=== PATIENT | female | born 1990 | race Two or more races ===

== ENCOUNTER 2021-04-12 13:43 | Emergency (ER) | payer BC ==
[2021-04-12] MEDS ORDERED: Ketorolac 30 MG/ML SDV IM ONE (14:05)
[2021-04-12] MEDS ORDERED: Ondansetron 4 MG Tab.DIS PO ONE (14:05)
--- NOTE | 2021-04-12 14:11 | EDM.PDOC ---
ED HPI GENERAL MEDICAL PROBLEM - General Chief Complaint: Respiratory Problem Stated Complaint: COVID + Time Seen by Provider: 04/12/21 13:57 Source of Information: Reports: Patient, RN Notes Reviewed History Limitations: Reports: No Limitations - History of Present Illness INITIAL COMMENTS - FREE TEXT/NARRATIVE: Patient is a 30-year-old female who presents to the ER for her ongoing COVID-19 symptoms. States that she has been sick for about 3 days and was diagnosed yesterday. States that she has been much every symptom COVID, fevers, chills, cough, shortness of breath, nausea so much that she cannot really keep any sort of food or fluids down and she also has been having diarrhea as well. States that she is a fairly healthy person otherwise and has no other comorbidities. 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 ED EXAM, GENERAL - Physical Exam Exam: See Below Exam Limited By: No Limitations General Appearance: Alert, WD/WN, No Apparent Distress Respiratory/Chest: No Respiratory Distress, Lungs Clear, Normal Breath Sounds, No Accessory Muscle Use, Chest Non-Tender Cardiovascular: Normal Peripheral Pulses, Regular Rate, Rhythm, No Edema Extremities: Normal Inspection, Normal Capillary Refill Neurological: Alert, Oriented, Normal Cognition, No Motor/Sensory Deficits Psychiatric: Normal Affect, Normal Mood Skin Exam: Warm, Dry, Intact, Normal Color, No Rash Course - Vital Signs Last Recorded V/S: Last Vital Signs Temp 98.0 F 04/12/21 13:55 Pulse 87 04/12/21 13:55 Resp 15 04/12/21 13:55 BP 102/67 04/12/21 13:55 Pulse Ox 95 04/12/21 13:55 - Orders/Labs/Meds Orders: Active Orders 24 hr Category Date Time Status Chest 1V Frontal [CR] Stat Exams 04/12/21 14:05 Ordered Labs: Laboratory Tests 04/12/21 04/12/21 Range/Units 14:33 14:33 WBC 5.81 (3.98-10.04) K/mm3 RBC 4.46 (3.98-5.22) M/mm3 Hgb 13.0 (11.2-15.7) gm/dl Hct 41.1 (34.1-44.9) % MCV 92.2 (79.4-94.8) fl MCH 29.1 (25.6-32.2) pg MCHC 31.6 L (32.2-35.5) g/dl RDW Std Deviation 44.0 (36.4-46.3) fL Plt Count 245 (182-369) K/mm3 MPV 10.2 (9.4-12.3) fl Neut % (Auto) 40.2 (34.0-71.1) % Lymph % (Auto) 43.9 (19.3-51.7) % [place] % (Auto) 14.6 H (4.7-12.5) % Eos % (Auto) 0.9 (0.7-5.8) Baso % (Auto) 0.2 (0.1-1.2) % Neut # (Auto) 2.34 (1.56-6.13) K/mm3 Lymph # (Auto) 2.55 (1.18-3.74) K/mm3 [place] # (Auto) 0.85 H (0.24-0.36) K/mm3 Eos # (Auto) 0.05 (0.04-0.36) K/mm3 Baso # (Auto) 0.01 (0.01-0.08) K/mm3 Sodium 140 (136-145) mEq/L Potassium 3.8 (3.5-5.1) mEq/L Chloride 104 (98-107) mEq/L Carbon Dioxide 27 (21-32) mEq/L Anion Gap 12.8 (5-15) BUN 11 (7-18) mg/dL Creatinine 1.0 (0.55-1.02) mg/dL Est Cr Clr Drug Dosing 63.88 mL/min Estimated GFR (MDRD) > 60 (>60) mL/min BUN/Creatinine Ratio 11.0 L (14-18) Glucose 82 (70-99) mg/dL Calcium 8.5 (8.5-10.1) mg/dL Total Bilirubin 0.2 (0.2-1.0) mg/dL AST 21 (15-37) U/L ALT 39 (14-59) U/L Alkaline Phosphatase 80 (46-116) U/L C-Reactive Protein 3.7 H* (<1.0) mg/dL Total Protein 7.8 (6.4-8.2) g/dl Albumin 3.5 (3.4-5.0) g/dl Globulin 4.3 gm/dL Albumin/Globulin Ratio 0.8 L (1-2) Meds: Medications Discontinued Medications Generic Name Dose Route Start Last Admin Trade Name Freq PRN Reason Stop Dose Admin Ketorolac Tromethamine 30 mg 04/12/21 14:05 04/12/21 14:46 Ketorolac 30 Mg/Ml Sdv IM 04/12/21 14:06 30 mg ONETIME ONE Administration Ondansetron HCl 4 mg 04/12/21 14:05 04/12/21 14:46 Ondansetron 4 Mg Tab.Dis PO 04/12/21 14:06 4 mg ONETIME ONE Administration - Re-Assessments/Exams Free Text/Narrative Re-Assessment/Exam: 04/12/21 14:12 Patient is a 30-year-old female who presents to the ER for evaluation of her COVID-19 symptoms. Main concern is nausea with associated vomiting, we will go ahead and give her an oral dose of Zofran and some IM Toradol for symptomatic management will get a chest x-ray for baseline and we will go ahead and get some basic labs. 04/12/21 15:48 Patient was reassessed at bedside states that her nausea has improved. Labs have been reviewed and are essentially unremarkable, chest x-ray also shows no acute processes. I did explain to the patient that she will likely feel pretty under the weather for another week to 10 days, and that she should watch her oxygen saturations and return to the ER if these are below 90. Patient verbalized understanding. She will be sent home with a pulse oximeter from this facility. Departure - Departure Time of Disposition: 15:49 Disposition: Home, Self-Care 01 Condition: Good Clinical Impression: COVID-19 - Discharge Information *PRESCRIPTION DRUG MONITORING PROGRAM REVIEWED*: No *COPY OF PRESCRIPTION DRUG MONITORING REPORT IN PATIENT [place]: No Prescriptions: Ondansetron [Zofran ODT] 4 mg PO Q8H PRN #21 tab.dis PRN Reason: Nausea Instructions: 10 Things You Can Do to Manage Your COVID-19 Symptoms at Home - [facility] (10/18/2020) Referrals: PCP,None [Primary Care Provider] - Forms: ED Department Discharge Additional Instructions: You were seen in the ER today for ongoing and/or worsening respiratory symptoms. Your chest x-ray showed no signs of pneumonia at this time. Your oxygen levels were great at 98-100% on room air. You were given a prescription for Zofran for your nausea you may take 1 tablet d issolvable under your tongue every 8 hours as needed. This medication was electronically sent to the [facility] located near [facility]. Please try to increase your oral fluid intake, and eat multiple small meals throughout the day, to keep yourself healthy. You need to keep yourself nourished in order to fight off this disease. You can try a liquid diet like ga torade/powerade as well to get your electrolytes. You may take 500 mg Tylenol every hours 6 hours for pain/fever relief. Do not exceed 4000 mg Tylenol in a 24-hour time span. However, running a fever is your body's natural response to illness, and it allows the body to develop antibodies to disease, we are recommending trying to limit the use of Tylenol as much as possible to allow your body's natural immune response. Recommend you obtain a pulse oximeter and monitor your oxygen levels at home, you should place the monitor on your finger, and sit in a calm, quiet position for a few minutes and then record the number that is on the screen. If this consistently below 90% on room air without movement, this would be cause for concern to come back to the hospital for further management of your COVID-19 disease. Current CDC guidelines are that you quarantine/isolate for the first 5 days from symptom onset; and then you may leave the house on last 5 days if you are masked. Sepsis Event Note (ED) - Focused Exam Vital Signs: Vital Signs Temp Pulse Resp BP Pulse Ox 04/12/21 13:55 98.0 F 87 15 102/67 95 - My Orders Last 24 Hours: My Active Orders 04/12/21 14:05 Chest 1V Frontal [CR] Stat - Assessment/Plan Last 24 Hours: My Active Orders 04/12/21 14:05 Chest 1V Frontal [CR] Stat
--- NOTE | 2021-04-14 09:07 | CR ---
EXAM: XR CHEST 1 VIEW LOCATION: [facility] DATE/TIME: 04/12/2021 2:11 PM INDICATION: Covid + baseline COMPARISON: None. IMPRESSION: Negative chest. SIGNED BY: Jesus Alberto Sleby MD 04/12/2021 4:23 PM [facility]
== END 2021-04-12 15:59 | disposition home or self-care (01) ==
LOC: JD.ED 13:43
DX: U07.1 COVID-19 (principal); Z72.0 Tobacco use
CPT/HCPCS: 36415; 71045; 80053; 85025; 86140; 96372; 99284; A9270; J1885

== ENCOUNTER 2021-07-09 15:45 | Emergency (ER) | payer BC | END 2021-07-09 18:23 | disposition home or self-care (01) | LOC: JD.ED 15:45 | DX: O99.891 Other specified diseases and conditions complicating pregnancy (principal); R30.0 Dysuria; Z86.16 Personal history of COVID-19; Z3A.01 Less than 8 weeks gestation of pregnancy | CPT/HCPCS: 36415; 81001; 84702; 99283 ==

== ENCOUNTER 2021-08-07 18:37 | Emergency (ER) | payer BC ==
[2021-08-07] MEDS ORDERED: Sodium Chloride 0.9% 10 ML Syringe FLUSH PRN (19:24)
[2021-08-07] MEDS ORDERED: Sodium Chloride 0.9% 1,000 ML IV STA (19:40)
== END 2021-08-07 23:25 | disposition home or self-care (01) ==
LOC: JD.ED 18:37
DX: O20.9 Hemorrhage in early pregnancy, unspecified (principal); Z3A.09 9 weeks gestation of pregnancy; Z86.16 Personal history of COVID-19; Z87.891 Personal history of nicotine dependence
CPT/HCPCS: 36415; 76817; 80053; 81001; 84702; 85025; 86850; 86900; 86901; 90384; 99284; J3490; J7030; J2790

== ENCOUNTER 2022-02-18 05:47 | Inpatient (IN) | payer BC, MEDICAID ==
[2022-02-18] MEDS: Lactated Ringers 1,000 ML IV SCH ×2 (06:00→07:07)
[2022-02-18] MEDS ORDERED: ceFAZolin 2 GM in Sodium Chloride 0.9% 50 ML IV ONE (06:12)
[2022-02-18] MEDS ORDERED: Sodium Chloride 0.9% 10 ML Syringe FLUSH PRN (06:12)
[2022-02-18] MEDS ORDERED: Citric Acid/Sodium Citrate Solution 30 ML Cup PO ONE (06:12)
[2022-02-18] MEDS ORDERED: Metoclopramide 10 MG/2 ML SDV IVPUSH ONE (06:12)
[2022-02-18] MEDS ORDERED: Morphine PF 10 MG/10 ML SDV ONE (06:42)
[2022-02-18] MEDS ORDERED: fentaNYL 100 MCG/2 ML SDV ONE (06:42)
[2022-02-18] MEDS ORDERED: Bupivacaine 0.75%/D5W 2 ML Amp ONE (07:10)
[2022-02-18] MEDS ORDERED: ceFAZolin 2 GM Vial ONE (07:26)
[2022-02-18] MEDS ORDERED: Phenylephrine HCl In 0.9% NaCl 1 MG/10 ML Vial ONE (07:32)
[2022-02-18] MEDS ORDERED: Ondansetron 4 MG/2 ML SDV ONE (07:40)
[2022-02-18] MEDS ORDERED: Oxytocin 10 Units/1 ML SDV ONE ×2 (07:43→08:00)
[2022-02-18] MEDS ORDERED: fentaNYL 100 MCG/2 ML SDV IVPUSH PRN (07:51)
[2022-02-18] MEDS ORDERED: diphenhydrAMINE 50 MG/ML SDV IVPUSH PRN ×2 (07:51→09:41)
[2022-02-18] MEDS ORDERED: Ondansetron 4 MG/2 ML SDV IVPUSH PRN (07:51)
[2022-02-18] MEDS ORDERED: Lactated Ringers 1,000 ML ONE (07:54)
[2022-02-18] MEDS ORDERED: Ketorolac 30 MG/ML SDV ONE (08:09)
[2022-02-18] MEDS ORDERED: Sodium Chloride 0.9% 10 ML Syringe FLUSH SCH (09:00)
[2022-02-18] MEDS ORDERED: Acetaminophen/oxyCODONE 325-5 MG Tab PO PRN (09:41)
[2022-02-18] MEDS ORDERED: Dextrose 5%-Lactated Ringers 1,000 ML IV SCH (09:41)
[2022-02-18] MEDS ORDERED: ePHEDrine 50 MG/ML SDV IVPUSH PRN (09:41)
[2022-02-18] MEDS ORDERED: Naloxone 0.4 MG/ML SDV IVPUSH PRN (09:41)
[2022-02-18] MEDS ORDERED: Ondansetron 4 MG/2 ML SDV IV PRN (09:41)
[2022-02-18] MEDS: Ketorolac 30 MG/ML SDV IVPUSH SCH ×2 (13:53→19:58)
[2022-02-18] MEDS ORDERED: Lactated Ringers 500 ML IV ONE (16:46)
[2022-02-19] MEDS: Ketorolac 30 MG/ML SDV IVPUSH SCH (01:12)
[2022-02-19] MEDS: Acetaminophen/oxyCODONE 325-5 MG Tab PO PRN ×3 (06:28→19:14)
[2022-02-19] MEDS: Ibuprofen 600 MG Tab PO PRN ×2 (08:26→15:40)
[2022-02-19] MEDS: Docusate Sodium 100 MG Cap PO PRN (19:33)
[2022-02-20] MEDS: Acetaminophen/oxyCODONE 325-5 MG Tab PO PRN ×3 (00:15→12:42)
[2022-02-20] MEDS: Ibuprofen 600 MG Tab PO PRN ×2 (01:12→08:38)
[2022-02-20] MEDS: Docusate Sodium 100 MG Cap PO PRN (08:38)
== END 2022-02-20 12:55 | disposition home or self-care (01) | DRG 788 ==
LOC: JD.OBCHECK 05:47 → JD.OB 05:48 → JD.OBCHECK 06:51 → JD.OB 06:53 → OBSVTOIN 07:42 → JD.OB 10:01
PROVIDERS: ADMIT Obstetrics & Gynecology; ATTEND Obstetrics & Gynecology
PROC: 10D00Z1 Extraction of Products of Conception, Low, Open Approach (ICD-10-PCS; principal; 2022-02-18)
DX: O30.043 Twin pregnancy, dichorionic/diamniotic, third trimester (principal); Z3A.37 37 weeks gestation of pregnancy; Z37.2 Twins, both liveborn; O26.893 Other specified pregnancy related conditions, third trimester; Z86.16 Personal history of COVID-19; Z90.49 Acquired absence of other specified parts of digestive tract; O32.1XX1 Maternal care for breech presentation, fetus 1; O32.1XX2 Maternal care for breech presentation, fetus 2
CPT/HCPCS: 01961; 36415; 59025; 85025; 85027; 85461; 86592; 86850; 86900; 86901; 94762; 99140; A9270-GY; J0690; J1885; J2274; J2405; J2590; J2765; J2790; J3010; J7120; J7121

== ENCOUNTER 2023-05-15 07:50 | Emergency (ER) | payer SELFPAY ==
[2023-05-15 08:34] LABS: BASOPHILS PERCENT AUTO 0.2 % (0.0-1.0); EOSINOPHILS ABSOLUTE AUTO 0.3 K/mm3 (0.0-0.4); EOSINOPHILS PERCENT AUTO 2.2 % (0.0-6.0); HEMATOCRIT 38.1 % (37.0-47.0); HEMOGLOBIN 12.7 gm/dl (12.0-16.0); IMMATURE GRAN ABSOLUTE AUTO 0.04 K/mm3 (0.00-0.05); IMMATURE GRAN PERCENT AUTO 0.4 % (0.0-0.4); LYMPHOCYTES ABSOLUTE AUTO 2.5 K/mm3 (1.0-4.8); LYMPHOCYTES PERCENT AUTO 22.3 % (24.0-44.0); MEAN CORPUSCULAR HEMOGLOBIN 30.1 pg (28.0-32.0); MEAN CORPUSCULAR HGB CONC 33.3 g/dl (32.0-36.0); MEAN CORPUSCULAR VOLUME 90.3 fl (83.0-99.0); MEAN PLATELET VOLUME 10.1 fl (9.4-12.3); MONOCYTES ABSOLUTE AUTO 0.7 K/mm3 (0.0-0.8); MONOCYTES PERCENT AUTO 6.2 % (0.0-8.0); NEUTROPHILS ABSOLUTE AUTO 7.7 K/mm3 (1.8-7.7); NEUTROPHILS PERCENT AUTO 68.7 % (41.0-71.0); PLATELET COUNT,PLT 293 K/mm3 (150-400); RED BLOOD CELL COUNT 4.22 M/mm3 (4.10-5.30); WHITE BLOOD CELL COUNT,WBC 11.21 K/mm3 (3.9-11.3)
[2023-05-15] MEDS: Iopamidol 612 MG/ML 100 ML Bottle IVPUSH ONE (08:34)
[2023-05-15] MEDS: Ondansetron 4 MG/2 ML SDV IVPUSH ONE (08:43)
[2023-05-15] MEDS: Morphine 4 MG/ML Syringe IVPUSH ONE (08:43)
[2023-05-15] MEDS: Sodium Chloride 0.9% 10 ML Syringe FLUSH PRN (08:50)
[2023-05-15 09:12] LABS: APPEARANCE,URINE SLT CLOUDY (Clear); BILIRUBIN,URINE NEGATIVE (Negative); COLOR,URINE YELLOW (Yellow); GLUCOSE,URINE NEGATIVE (Negative); KETONES,URINE NEGATIVE (Negative); LEUKOCYTE ESTERASE,URINE TRACE (Negative); NITRITE,URINE NEGATIVE (Negative); OCCULT BLOOD,URINE 2+ (Negative); PROTEIN,URINE 1+ (Negative); UROBILINOGEN,URINE 0.2 (0.2-1.0)
[2023-05-15 09:24] LABS: A/G RATIO 0.8 (1-2); ALBUMIN 3.5 g/dl (3.4-5.0); ANION GAP 16.3 (5-15); BILIRUBIN TOTAL 0.4 mg/dL (0.2-1.0); BUN/CREATININE RATIO 17.1 (14-18); CALCIUM 8.7 mg/dL (8.5-10.1); CREATININE 0.7 mg/dL (0.55-1.02); EST CRCL DRUG DOSING (CG) 89.56 mL/min
[2023-05-15 09:26] LABS: POTASSIUM,K 5.3 mEq/L (3.5-5.1)
[2023-05-15 09:38] LABS: BACTERIA,URINE FEW /hpf (FEW); MUCUS,URINE FEW /hpf (FEW); RBC,URINE 30-40 /hpf (0-5)
[2023-05-15 09:52] LABS: CORONAVIRUS COVID-19 NAA NEGATIVE (NEGATIVE); INFLUENZA A NAA NEGATIVE (NEGATIVE); RESPIRATORY SYNCYTIAL VIR NAA NEGATIVE (NEGATIVE)
== END 2023-05-15 10:14 | disposition home or self-care (01) ==
LOC: JD.ED 07:50
DX: R10.31 Right lower quadrant pain (principal); Z86.16 Personal history of COVID-19
CPT/HCPCS: 0241U; 36415; 74177; 80053; 81001; 81025; 83605; 83690; 85025; 96374; 96375; 99284; J2270; J2405; J3490; Q9967